=== PATIENT | female | born 1995 | race American Indian/Alaskan Native ===

== ENCOUNTER 2020-01-18 19:21 | Emergency (ER) | payer SELFPAY ==
--- NOTE | 2020-01-18 19:49 | Event Note ---
ED Screening Note Date of service: 01/18/20 Time: 19:47 ED Screening Note: 24 y/o female comes in for intermittent vaginal bleeding This initial assessment/diagnostic orders/clinical plan/treatment(s) is/are subject to change based on patients health status, clinical progression and re-assessment by fellow clinical providers in the ED. Further treatment and workup at subsequent clinical providers discretion. Patient/guardian urged not to elope from the ED as their condition may be serious if not clinically assessed and managed. Initial orders include:
[2020-01-18 20:26] LABS: HCG Qualitative,Urine Negative (Negative)
[2020-01-18 20:27] LABS: Bilirubin,Urine NEG (Negative); Blood,Urine SM (Negative); Color,Urine Yellow (Yellow); Mucus,Urine FEW /HPF; Protein,Urine <15 mg/dL mg/dL (Negative); Urobilinogen,Urine < 2.0 mg/dL (<2.0)
--- NOTE | 2020-01-18 20:57 | Emergency Department Report ---
ED Female HPI - General Chief complaint: Vaginal Bleeding Stated complaint: ABNORMAL VAGINAL BLEEDING Time Seen by Provider: 01/18/20 20:46 Source: patient Mode of arrival: Ambulatory Limitations: No Limitations - Related Data Allergies Allergy/AdvReac Type Severity Reaction Status Date / Time No Known Allergies Allergy Unverified 01/18/20 19:46 ED Review of Systems ROS: Stated complaint: ABNORMAL VAGINAL BLEEDING Other details as noted in HPI Constitutional: denies: chills, fever Eyes: denies: eye pain, eye discharge, vision change ENT: denies: ear pain, throat pain Respiratory: denies: cough, shortness of breath, wheezing Cardiovascular: denies: chest pain, palpitations Endocrine: no symptoms reported Gastrointestinal: denies: abdominal pain, nausea, diarrhea Genitourinary: denies: urgency, dysuria, discharge Musculoskeletal: denies: back pain, joint swelling, arthralgia Skin: denies: rash, lesions Neurological: denies: headache, weakness, paresthesias Psychiatric: denies: anxiety, depression Hematological/Lymphatic: denies: easy bleeding, easy bruising ED Past Medical Hx - Past Medical History Previous Medical History?: Yes Additional medical history: ovarian cyst - Surgical History Past Surgical History?: No - Social History Smoking Status: Never Smoker ED Physical Exam - General Limitations: No Limitations General appearance: alert, in no apparent distress - Head Head exam: Present: atraumatic, normocephalic - Eye Eye exam: Present: normal appearance - ENT ENT exam: Present: mucous membranes moist - Neck Neck exam: Present: normal inspection - Respiratory Respiratory exam: Present: normal lung sounds bilaterally. Absent: respiratory distress - Cardiovascular Cardiovascular Exam: Present: regular rate, normal rhythm. Absent: systolic murmur, diastolic murmur, rubs, gallop - GI/Abdominal GI/Abdominal exam: Present: soft, normal bowel sounds. Absent: tenderness (No tenderness to the abdomen or suprapubic region with palpation. No CVA tenderness is noted. The abdomen is soft bowel sounds are positive) - Extremities Exam Extremities exam: Present: normal inspection - Back Exam Back exam: Present: normal inspection. Absent: tenderness - Neurological Exam Neurological exam: Present: alert, oriented X3 - Psychiatric Psychiatric exam: Present: normal affect, normal mood - Skin Skin exam: Present: warm, dry, intact, normal color. Absent: rash ED Medical Decision Making - Medical Decision Making 24-year-old female presents emergency department complaining of spotting but no abdominal pain and has a strong suspicion for however the test was normal. She had a ultrasound 2 weeks ago and was found to have an ovarian cysts wanted to be evaluated and have her and have her recheck. She is hemodynamically stable pain-free alert and oriented x3. She has been advised on importance of follow-up with the [facility] Critical care attestation.: If time is entered above; I have spent that time in minutes in the direct care of this critically ill patient, excluding procedure time. ED Disposition Clinical Impression: Vaginal bleeding, Negative test Disposition: DC- TO HOME OR SELFCARE Is pt being admited?: No Does the pt Need Aspirin: No Condition: Stable Instructions: Menstruation (ED) Referrals: PRIMARY CARE [Primary Care Provider] - 3-5 Days [facility] [Provider Group] - 3-5 Days
[2020-01-18 21:18] VITALS: BP 113/71
== END 2020-01-18 23:00 | disposition home or self-care (01) ==
LOC: ED 19:21
DX: N93.9 Abnormal uterine and vaginal bleeding, unspecified (principal); N83.209 Unspecified ovarian cyst, unspecified side; Z32.02 Encounter for pregnancy test, result negative
CPT/HCPCS: 81001; 81025; 99283

== ENCOUNTER 2020-06-10 01:26 | Emergency (ER) | payer SELFPAY ==
[2020-06-10 02:33] VITALS: BP 131/76
[2020-06-10] MEDS ORDERED: MORPHINE 4 MG/1 ML INJ IV ONE (02:53)
[2020-06-10] MEDS ORDERED: ONDANSETRON 4 MG/2 ML INJ IV ONE (02:53)
[2020-06-10] MEDS ORDERED: SODIUM CHLORIDE 0.9% 1000 ML 1,000 ML IV ONE (02:54)
[2020-06-10 03:20] LABS: Bilirubin,Urine NEG (Negative); Blood,Urine NEG (Negative); Color,Urine Yellow (Yellow); Mucus,Urine 3+ /HPF; Protein,Urine <15 mg/dL mg/dL (Negative); Urobilinogen,Urine < 2.0 mg/dL (<2.0)
[2020-06-10 04:16] LABS: Basophils % (Auto) 0.3 % (0.0-1.8); Eosinophils # (Auto) 0.1 K/mm3 (0.0-0.4); Eosinophils % (Auto) 0.5 % (0.0-4.3); Hematocrit 42.1 % (30.3-42.9); Hemoglobin 13.9 gm/dl (10.1-14.3); Lymphocytes # (Auto) 2.1 K/mm3 (1.2-5.4); Lymphocytes % (Auto) 14.9 % (13.4-35.0); Mean Corpuscular HGB Conc 33 % (30-34); Mean Corpuscular Volume 89 fl (79-97); Monocytes # (Auto) 0.7 K/mm3 (0.0-0.8); Monocytes % (Auto) 4.9 % (0.0-7.3); Platelet Count 271 K/mm3 (140-440); Red Cell Distribution Width 13.7 % (13.2-15.2)
[2020-06-10 04:38] LABS: Alanine Aminotransferase 16 units/L (7-56); Albumin 4.3 g/dL (3.9-5); BUN/Creatinine Ratio 15; Blood Urea Nitrogen 12 mg/dL (7-17); Calcium 9.9 mg/dL (8.4-10.2); Hemolysis Index 22
--- NOTE | 2020-06-10 05:25 | Cat Scan Report ---
CT abdomen pelvis w con INDICATION: ABDOMINAL PAIN. TECHNIQUE: All CT scans at this location are performed using the following dose modulation technique: Automated exposure control. CONTRAST: Omnipaque 300, 100 cc IV injection. COMPARISON: None available. CT ABDOMEN: The parenchymal organs are unremarkable in appearance other than mild fatty infiltration in the liver. Negative for abdominal mass, fluid or inflammation. The bowel is not dilated or thicken ed. CT PELVIS: The appendix is normal. A small dermoid at the right ovary measures 9 mm. Negative for pel gerri mass, fluid or inflammation. IMPRESSION: 1. Negative for obstruction or localized inflammation. 2. Incidental 9 mm right ovarian dermoid. Signer Name: Leroy Sinha MD Signed: 06/10/2020 5:21 AM Workstation Name: [id number]
--- NOTE | 2020-06-10 06:01 | Emergency Department Report ---
ED Abdominal Pain HPI - General Chief Complaint: Abdominal Pain Stated Complaint: ABDOMINAL PAIN Source: patient Mode of arrival: Ambulatory Limitations: No Limitations - History of Present Illness Initial Comments: Patient is a nulliparous 24-year-old female with a history of recurrent ovarian cysts who presents to the ED with complaint of acute onset persistent severe right lower quadrant pain that radiates to the suprapubic area and periumbilical area for the last 4 days with nausea and vomiting. Patient states that the pain is worse with movement or when she tries to void urine or have a bowel movement. Patient denies fever, chills, dysuria, urinary frequency and urgency, vaginal bleeding, vaginal discharge, low back pain, chest pain, shortness of breath, diarrhea, dizziness, syncope, chest pain or shortness of breath or traumatic injury and heavy lifting. MD Complaint: abdominal pain (Right lower quadrant that radiates to the periumbilical area), other -: Sudden, days(s) (4) Location: periumbilical, RLQ, suprapubic Radiation: RLQ, suprapubic Migration to: periumbilical, RLQ, suprapubic Severity: severe Severity scale (0 -10): 8 Quality: cramping, aching, sharp Consistency: constant Improves With: nothing Worsens With: movement Associated Symptoms: denies other symptoms, nausea, vomiting. denies: diarrhea, fever, chills, constipation, dysuria, hematemesis, hematochezia, melena, hematuria, anorexia, syncope - Related Data LMP (females 10-50): 3 weeks Previous Rx's Medication Instructions Recorded Last Taken Type Ibuprofen [Motrin] 800 mg PO Q8HR PRN #30 tablet 06/10/20 Unknown Rx Ondansetron [Zofran Odt] 4 mg PO Q6HR PRN #20 tab.rapdis 06/10/20 Unknown Rx traMADoL [Ultram] 50 mg PO Q6HR PRN #12 tablet 06/10/20 Unknown Rx Allergies Allergy/AdvReac Type Severity Reaction Status Date / Time No Known Allergies Allergy Unverified 01/18/20 19:46 ED Review of Systems ROS: Stated complaint: ABDOMINAL PAIN Other details as noted in HPI Constitutional: denies: chills, fever Eyes: denies: eye pain, eye discharge, vision change ENT: denies: ear pain, throat pain Respiratory: denies: cough, shortness of breath, wheezing Cardiovascular: denies: chest pain, palpitations Endocrine: no symptoms reported Gastrointestinal: abdominal pain, nausea, vomiting. denies: diarrhea Genitourinary: denies: urgency, dysuria, discharge Musculoskeletal: denies: back pain, joint swelling, arthralgia Skin: denies: rash, lesions Neurological: denies: headache, weakness, paresthesias Psychiatric: denies: anxiety, depression Hematological/Lymphatic: denies: easy bleeding, easy bruising ED Past Medical Hx - Past Medical History Previous Medical History?: Yes Additional medical history: ovarian cyst - Surgical History Past Surgical History?: No - Social History Smoking Status: Never Smoker Substance Use Type: None - Medications Home Medications: Home Medications Medication Instructions Recorded Confirmed Last Taken Type Ibuprofen [Motrin] 800 mg PO Q8HR PRN #30 tablet 06/10/20 Unknown Rx Ondansetron [Zofran Odt] 4 mg PO Q6HR PRN #20 tab.rapdis 06/10/20 Unknown Rx traMADoL [Ultram] 50 mg PO Q6HR PRN #12 tablet 06/10/20 Unknown Rx ED Physical Exam - General Limitations: No Limitations General appearance: alert, in no apparent distress - Head Head exam: Present: atraumatic, normocephalic, normal inspection - Eye Eye exam: Present: normal appearance, PERRL, EOMI Pupils: Present: normal accommodation - ENT ENT exam: Present: normal exam, normal orophraynx, mucous membranes moist, TM's normal bilaterally, normal external ear exam - Neck Neck exam: Present: normal inspection, full ROM - Respiratory Respiratory exam: Present: normal lung sounds bilaterally. Absent: respiratory distress, wheezes, chest wall tenderness, accessory muscle use, decreased breath sounds - Cardiovascular Cardiovascular Exam: Present: regular rate, normal rhythm, normal heart sounds. Absent: systolic murmur, diastolic murmur, rubs, gallop - GI/Abdominal GI/Abdominal exam: Present: soft, tenderness (Palpable right lower quadrant and periumbilical tenderness with no guarding or rebound), normal bowel sounds. Absent: guarding, rebound, hyperactive bowel sounds - Bi-manual exam: Present: other - Extremities Exam Extremities exam: Present: normal inspection, full ROM, normal capillary refill - Back Exam Back exam: Present: normal inspection, full ROM. Absent: tenderness, CVA tenderness (R), CVA tenderness (L), muscle spasm, paraspinal tenderness, vertebral tenderness - Neurological Exam Neurological exam: Present: alert, oriented X3, CN II-XII intact, normal gait, r eflexes normal - Psychiatric Psychiatric exam: Present: normal affect, normal mood - Skin Skin exam: Present: warm, dry, intact, normal color. Absent: rash ED Course Vital Signs 06/10/20 02:25 Temperature 98.0 F Pulse Rate 100 H Respiratory 16 Rate Blood Pressure 131/76 O2 Sat by Pulse 98 Oximetry ED Medical Decision Making - Lab Data Result diagrams: 06/10/20 02:37 06/10/20 02:37 - Radiology Data Radiology results: report reviewed, image reviewed Findings [facility] [address] [place] [address] Cat Scan Report Signed Patient: SAMIRA BYRNE MR#: [id number] : 1995 Acct:[id number] Age/Sex: 24 / F ADM Date: 06/10/20 Loc: ED Attending Dr: Ordering Physician: SINDHU PALACIOS Date of Service: 06/10/20 Procedure(s): CT abdomen pelvis w con Accession Number(s): [id number] cc: SINDHU PALACIOS CT abdomen pelvis w con INDICATION: ABDOMINAL PAIN. TECHNIQUE: All CT scans at this location are performed using the following dose modulation technique: Automated exposure control. CONTRAST: Omnipaque 300, 100 cc IV injection. COMPARISON: None available. CT ABDOMEN: The parenchymal organs are unremarkable in appearance other than mild fatty infiltration in the liver. Negative for abdominal mass, fluid or inflammation. The bowel is not dilated or thickened. CT PELVIS: The appendix is normal. A small dermoid at the right ovary measures 9 mm. Negative for pelvic mass, fluid or inflammation. IMPRESSION: 1. Negative for obstruction or localized inflammation. 2. Incidental 9 mm right ovarian dermoid. Signer Name: Leroy Sinha MD Signed: 06/10/2020 5:21 AM Workstation Name: [id number] Transcribed By: ES Dictated By: Leroy Sinha MD Electronically Authenticated By: Leroy Sinha MD Signed Date/Time: 06/10/20520 DD/ 6 TD/TT: - Medical Decision Making This is a nulliparous 24-year-old female with a history of recurrent ov janelle cysts who presents to the ED with complaint of acute onset persistent severe right lower quadrant pain that radiates to the suprapubic area and periumbilical area for the last 4 days with nausea and vomiting. Patient states that the pain is worse with movement or when she tries to void urine or have a bowel movement. In the ED, patient is alert and oriented x3 and is not in distress. Patient was treated for pain and also treated for nausea and vomiting, also given normal saline IV bolus x1. Lab test results were reviewed and are all nonactionable except for acute leukocytosis of 14,100. The rest of the lab test results are nonactionable including urinalysis and a negative hCG serum test. The abdomen pelvis CT scan with contrast was negative for obstruction or localized inflammation. However there was an incidental finding of a 9 mm right ovarian dermoid cyst. On reevaluation, patient's pain is well controlled with medications. Patient was discharged home on pain medications and antiemetics and was given a referral to the [facility] physician on-call Dr. Marlyn Nunn for further evaluation. Patient was advised to return to the ED immediately if symptoms get worse. - Differential Diagnosis Appendicitis; ovarian cyst; UTI; ; fibroid; kidney stones; colitis Critical care attestation.: If time is entered above; I have spent that time in minutes in the direct care of this critically ill patient, excluding procedure time. ED Disposition Clinical Impression: Acute abdominal pain in right lower quadrant, Dermoid cyst of right ovary, Nausea and vomiting in adult patient Disposition: DC-01 TO HOME OR SELFCARE Is pt being admited?: No Does the pt Need Aspirin: No Condition: Stable Instructions: Abdominal Pain (ED), Ovarian Cyst (ED), Acute Nausea and Vomiting (ED) Additional Instructions: All lab test results are unremarkable except for acute leukocytosis due to the finding of dermoid ovarian cyst of the right ovary. Therefore take medications with food, drink plenty of fluids and follow-up with the [facility] physician Dr. Marlyn Nunn for further evaluation. Contact Dr. Nunn office first thing on Friday, June 12, 2020 to schedule a follow-up appointment. Return to the ED immediately if symptoms get worse. Prescriptions: Ibuprofen [Motrin] 800 mg PO Q8HR PRN #30 tablet PRN Reason: Pain , Severe (7-10) traMADoL [Ultram] 50 mg PO Q6HR PRN #12 tablet PRN Reason: Pain Ondansetron [Zofran Odt] 4 mg PO Q6HR PRN #20 tab.rapdis PRN Reason: Nausea Referrals: MARLYN NUNN MD [Staff Physician] - 3-5 Days Time of Disposition: 06:05 Print Language: FRISIAN
== END 2020-06-10 06:40 | disposition home or self-care (01) ==
LOC: ED 01:26
DX: D27.0 Benign neoplasm of right ovary (principal); R10.31 Right lower quadrant pain; R10.2 Pelvic and perineal pain; R11.2 Nausea with vomiting, unspecified; Z79.1 Long term (current) use of non-steroidal anti-inflammatories (NSAID); Z79.899 Other long term (current) drug therapy
CPT/HCPCS: 36415; 74177; 80053; 81001; 84703; 85025; 96361; 96374; 96375; 99284; J2270; J2405; J7030; Q9967